=== PATIENT | male | born 2000 | race Caucasian/White ===

== ENCOUNTER 2018-09-03 20:23 | Emergency (ER) | payer OTHER ==
[2018-09-03 20:31] VITALS: BMI 41.5
[2018-09-03] MEDS ORDERED: SODIUM CHLORIDE 1,000 ML IV STA (20:35)
[2018-09-03] MEDS ORDERED: ACETAMINOPHEN 1000 MG/100 ML VIAL (NON FORMULARY) IVPB ONE (20:56)
--- NOTE | 2018-09-03 20:56 | PDOC ---
History of Present Illness - General History Source: Patient Exam Limitations: No Limitations - History of Present Illness Initial Comments: 09/03/18 21:49 The patient is a 18 year old male with a significant past medical history of eczema and asthma ( on albuterol as needed) who present the the ED with RLQ pain x 2 days. The patient describes the pain as non radiating, sharp and pulsating in quality, 9/10 with movement, however, the pain is a 6/10 currently. The patient states his pain is aggravated with any muscle activity which he does often because he works as a lead cashier. The patient states he took 2 tablets Ibuprofen [employer] with mild relief. Associated with nausea, but no vomiting or diarrhea, f/c. The patient notes he experienced this similar pain 5 years ago , was seen at [facility], and was told it was inflammation/colitis and treated with oral abx and subsequently resolved.. Denies fever, chills, chest pain, SOB, palpitation, dizziness, weakness, V, D, bladder and bowel problems, leg swelling, No sick contacts or travel. No suspicious food intake. No neck pain, sweats, rashes, or hernias. Allergies: None Past Medical History: As documented in HPI Social history: Lives with family. No tobacco, ETOH or drug use. Surgical history: tonsillectomy Meds: as documented in EMR PCP: Franco Rocha <Lazaro Ovalle - Last Filed: 09/03/18 21:49> - General History Source: Patient Exam Limitations: No Limitations <Ivory Bear - Last Filed: 09/04/18 01:07> - General Chief Complaint: Pain, Acute Stated Complaint: PAIN Time Seen by Provider: 09/03/18 20:37 Past History <Lazaro Ovalle - Last Filed: 09/03/18 21:49> - Past Medical History Asthma: Yes COPD: No - Immunization History Immunization Up to Date: Yes - Suicide/Smoking/Psychosocial Hx Smoking History: Never smoked Have you smoked in the past 12 months: No Information on smoking cessation initiated: No Hx Alcohol Use: No Drug/Substance Use Hx: No Substance Use Type: None <Ivory Bear - Last Filed: 09/04/18 01:07> - Past Medical History Allergies/Adverse Reactions: Allergies Allergy/AdvReac Type Severity Reaction Status Date / Time No Known Allergies Allergy Verified 09/03/18 20:31 Home Medications: Ambulatory Orders Albuterol Sulfate Inhaler - [Ventolin HFA Inhaler -] 1 - 2 inh PO QID PRN Review of Systems - Review of Systems Able to Perform ROS?: Yes Comments:: 09/03/18 21:50 Constitutional: no fevers or chills. HEENT: no headache or dizziness. No congestion. No sore throat or ear pain. No difficulty swallowing CVS: no cp or syncope. Resp: no sob. No cough. Gastrointestinal:(+) nausea. +abdominal pain. No vomiting or diarrhea or bloody stools Genitourinary: no urinary sx, hematuria. No urethral discharge, scrotal or testicular pain. MUSCULOSKELETAL: No joint pain and swelling. No neck or back pain. SKIN: no redness or skin changes, no discharge, no rash. No wounds. Hematologic: no easy bruising/bleeding. NEUROLOGIC: No headache, dizziness, LOC or altered mental status. Allergic/Immunologic: no allergies All other systems reviewed and negative, or as documented in HPI. All Other Systems: Reviewed and Negative <Lazaro Ovalle - Last Filed: 09/03/18 21:49> *Physical Exam - Vital Signs Last Vital Signs Temp Pulse Resp BP Pulse Ox 98.2 F 91 H 16 183/64 H 100 09/03/18 20:29 09/03/18 20:29 09/03/18 20:29 09/03/18 20:29 09/03/18 20:29 - Physical Exam Comments: 09/03/18 21:50 General: Well appearing, awake and alert, NAD. HEENT: NCAT, PERRL, EOMI, clear conjunctiva, anicteric, moist mucus membranes, clear oropharynx, no oral lesions.. Neck: neck supple, FROM Resp: CTAB, normal and even respirations, no respiratory distress CVS: RRR, no murmurs, 2+ peripheral pulses throughout, no peripheral edema Abdomen: (+) RLQ tenderness. No rebound. No guarding. No CVA tenderness. No obturator or Rovsings sign. soft, obese abdomen with striae : normal external genitalia, no lesions, normal testicular lie, no scrotal or testicular edema or tenderness. +cremaster reflex bilaterally. no hernia palpated. Back: nontender, normal inspection and ROM MSK: no edema, WILSON x4, ROM intact. No clubbing or cyanosis. normal bulk and tone. Neuro: alert Skin: warm and well perfused, cap refill <2 sec, normal color <Lazaro Ovalle - Last Filed: 09/03/18 21:49> - Vital Signs Last Vital Signs Temp Pulse Resp BP Pulse Ox 98.2 F 91 H 16 183/64 H 100 09/03/18 20:29 09/03/18 20:29 09/03/18 20:29 09/03/18 20:29 09/03/18 20:29 <Ivory Bear - Last Filed: 09/04/18 01:07> ED Treatment Course - LABORATORY CBC & Chemistry Diagram: 09/03/18 21:15 09/03/18 21:15 - Medications Given in the ED: ED Medications Discontinued Medications Generic Name Dose Route Start Last Admin Trade Name Edwar PRN Reason Stop Dose Admin Acetaminophen 1,000 mg 09/03/18 20:56 09/03/18 21:35 Ofirmev Injection - IVPB 09/03/18 20:57 1,000 mg ONCE ONE Administration Sodium Chloride 1,000 mls @ 1,000 mls/hr 09/03/18 20:35 09/03/18 21:35 Normal Saline - IV 09/03/18 21:34 1,000 mls/hr ASDIR STA Administration <Lazaro Ovalle - Last Filed: 09/03/18 21:49> - LABORATORY CBC & Chemistry Diagram: 09/03/18 21:15 09/03/18 21:15 <Ivory Bear - Last Filed: 09/04/18 01:07> Medical Decision Making - Medical Decision Making 09/03/18 20:55 hpi as documented VS notable for mild hypertension, but normal HR DDx abdominal pain: Renal colic, biliary colic, metabolic/electrolyte derangements. GERD, PUD, esophageal spasm, pancreatitis, hepatitis, constipation , colitis, gastroenteritis, cholecystitis, UTI, pyelonephritis, ileus, SBO, medication side effect, hernia, appendicitis, diverticulitis, msk strain, testicular torsion - normal testicular exam, no palp hernia. labs and lytes_remarkable for mild leukocytosis of 14.5K, otherwise normal Cr and lytes. lfts and lipase_normal UA neg for infection ED course: IVF and analgesia, reassess CT a/p to eval for appy or abdominal infection/colitis or hernia. no e/o appendicitis, colitis. no perf or obstruction. inflammatory lymph nodes of mesentery, ?mesenteric adenitis. repeat VS normalized, pain controlled, remains well appearing and abdomen soft, benign exam on reeval treat with supportive care, no abx, analgesia and rest. dispo: Pt to be discharged in stable condition. Patient and family made aware of impression and plan, return precautions discussed (including but not limited to worsening pain or symptoms), fevers, or signs of infection, chest pain, respiratory distress, inability to tolerate oral intake, dehydration, syncope, or neurologic changes). Follow up with PMD Dr Agee as recommended, follow up information provided, take medications as instructed for duration of time. continue with supportive care, avoid triggers and precipitants. All questions answered to patient's satisfaction and expressed understanding and comfort with this. Patient does not suffer from an acute life-threatening medical condition at this time she is safe for outpatient follow-up. 09/04/18 01:06 <Ivory Bear - Last Filed: 09/04/18 01:07> *DC/Admit/Observation/Transfer - Attestations Scribe Attestion: 09/03/18 21:50 Documentation prepared by Lazaro Ovalle, acting as medical staff coordinator for Ivory Bear MD, MD <Lazaro Ovalle - Last Filed: 09/03/18 21:49> - Discharge Dispostion Decision to Admit order: No - Attestations Physician Attestion: 09/04/18 01:06 I, Ivory Bear MD, attest that this document has been prepared under my direction and personally reviewed by me in its entirety. I further attest, that it accurately reflects all work, treatment, procedures and medical decision -making performed by me. <Ivory Bear - Last Filed: 09/04/18 01:07> Diagnosis at time of Disposition: Abdominal pain, Mesenteric adenitis - Discharge Dispostion Disposition: HOME Condition at time of disposition: Improved - Referrals Referrals: Franco Agee MD [Primary Care Provider] - - Patient Instructions Printed Discharge Instructions: DI for Abdominal Pain-Adult, DI for Mesenteric Adenitis-Adult Additional Instructions: 1) Please follow-up with your primary care doctor in the next 1-2 days. Please call tomorrow for for any urgent issues. 2) You were given a copy of the tests performed today. Please bring the results with you and review them with your primary care doctor. Your laboratory / imaging results were normal, there may be inflammed lymph nodes but your appendix and organs in your abdomen are normal. 3) If you have any worsening of symptoms or any other concerns please return to the ED immediately. Return if worsening symptoms including fevers, headache, vomiting, visual or hearing disturbances, abdominal pain, chest pain, shortness of breath, syncope, dehydration, inability to take things by mouth/vomiting, altered mental status, or worsening concerning symptoms. 4) Please continue taking your home medications as directed. no antibiotics are needed. Please take IBUPROFEN (aka MOTRIN, ADVIL, ALEVE) 400 mg and/or ACETAMINOPHEN ( aka Tylenol) 650-975 mg every 6 hours, as needed, for pain. Please do not take these medications if you have a bleeding disorder, stomach or GI ulcer problems or liver disease. Stay well hydrated and rest adequately. an appointment. If you cannot follow-up with your primary care doctor please return to the ED - Post Discharge Activity Forms/Work/School Notes: Back to Work
[2018-09-03] MEDS ORDERED: ACETAMINOPHEN INJECTION 100 ML IVPB ONE (21:25)
[2018-09-03 21:50] LABS: EOS % 2.3 % (0-4.5); HEMATOCRIT 41.8 % (35.4-49); LYMPH % 28.7 % (8-40); MCH 28.7 pg (25.7-33.7); MCHC 33.4 g/dl (32.0-35.9); MEAN CELL VOLUME 85.8 fl (80-96); MEAN PLT VOLUME 7.9 fl (7.5-11.1); MONO % 4.8 % (3.8-10.2); NEUT % 63.2 % (42.8-82.8); PLATELET COUNT 425 K/MM3 (134-434); RBC 4.87 M/mm3 (4.00-5.60); RDW 14.3 % (11.9-15.9); WHITE BLOOD COUNT 14.5 K/mm3 (4.0-10.0)
[2018-09-03 22:05] LABS: ALBUMIN 3.5 g/dl (3.4-5.0); ALK PHOS 137 U/L (45-117); ANION GAP 7 MMOL/L (8-16); BILIRUBIN,TOTAL < 0.1 mg/dL (0.2-1); BLOOD UREA NITROGEN 11 mg/dL (7-18); CALCIUM 8.6 mg/dL (8.5-10.1); CHLORIDE 104 mmol/L (98-107); CO2 28 mmol/L (21-32); CREATININE 0.7 mg/dL (0.55-1.3); GLUCOSE,RANDOM 130 mg/dL (74-106); POTASSIUM 4.2 mmol/L (3.5-5.1); SGOT/AST 34 U/L (15-37); SGPT/ALT 52 U/L (13-61); SODIUM 139 mmol/L (136-145); TOT PROT 7.4 g/dl (6.4-8.2)
[2018-09-03 22:21] LABS: URINE APPEARANCE CLEAR; URINE BILIRUBIN NEGATIVE (NEGATIVE); URINE COLOR YELLOW; URINE GLUCOSE (UA) NEGATIVE (NEGATIVE); URINE KETONE TRACE (NEGATIVE); URINE LEUK ESTERASE NEGATIVE (NEGATIVE); URINE NITRITE NEGATIVE (NEGATIVE); URINE PROTEIN NEGATIVE (NEGATIVE)
[2018-09-04 01:00] VITALS: PULSE 90; TEMP 98.4
[2018-09-04 01:11] VITALS: BP 138/73
== END 2018-09-04 01:29 | disposition home or self-care (01) ==
LOC: SUPCPDRO 20:23 → JER 20:23
PROC: 3E0337Z Introduction of Electrolytic and Water Balance Substance into Peripheral Vein, Percutaneous Approach (ICD-10-PCS; principal; 2018-09-03)
PROC: 3E033NZ Introduction of Analgesics, Hypnotics, Sedatives into Peripheral Vein, Percutaneous Approach (ICD-10-PCS; 2018-09-03)
DX: I88.0 Nonspecific mesenteric lymphadenitis (principal); R10.9 Unspecified abdominal pain
CPT/HCPCS: 36415; 74177-TC; 80053; 81003; 84703; 85025; 87086; 99282-25; J0131; J7030